=== PATIENT | female | born 1985 | race Caucasian/White ===

== ENCOUNTER 2016-06-22 18:12 | Emergency (ER) | payer OTHER ==
--- NOTE | 2016-06-22 18:43 | ED GI/GU/ABDOMINAL COMPLAINT ---
History of Present Illness General Chief Complaint: Abdominal Pain/Flank Pain Stated Complaint: ABD PAIN, +N/V Source: patient Exam Limitations: no limitations Vital Signs & Intake/Output Vital Signs & Intake/Output Vital Signs Date Time Temp Pulse Resp B/P Pulse O2 O2 Flow FiO2 Ox Delivery Rate 06/22 2012 74 14 104/62 99 Room Air 06/22 1906 Room Air 06/22 1859 80 14 105/58 99 Room Air 06/22 1814 98.1 81 18 123/76 100 Room Air Allergies Coded Allergies: NO KNOWN ALLERGIES (06/22/16) Reconcile Medications Ondansetron (Zofran Odt) 4 MG TAB.RAPDIS 1 TAB SL Q6P PRN NAUSEA/VOMITING Vit No.130/Iron/FA ( Tablet) 27 MG IRON-800 MCG TABLET 1 TAB PO DAILY (Reported) Ranitidine HCl (Zantac) 300 MG TABLET 1 TAB PO DAILY stomache acid Triage Note: PT TO TRIAGE FOR UPPER AND BURNING AT 3PM, INCREASING TO SHARP. PT ATE AND DRANK SOME FOODAND THEN THREW UP. PAIN IS NOW CONSTANT. PT STATES SHE ALSO IS NAUSEOUS. 12 WEEKS Dec, . Triage Nurses Notes Reviewed? yes HPI: 30-year-old female here with complaints of epigastric abdominal pain which is a moderate burning sensation nonradiating and one episode of vomiting several times. She states she went out to dinner last night had a Caesar salad, had diarrhea later in the evening and then while she was driving to work around 2 PM she felt pain in her epigastric region and burning sensation. This continued throughout the afternoon. 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 Her last vomiting she had trace of blood in it. She is currently 12 weeks , unconjugated thus far, had ultrasounds and documented IUP, she follows with [facility]. She is moderately nauseous but does not want anything for nausea or pain. She denies any fever or flulike illness. She has no pain radiating into the back. She has no lower abdominal pain. She has not worsening urinary frequency urgency or burning (KRISTY MELÉNDEZ,CARISSA) ? y Is pt currently ? No (NICOLA FRIEDMAN,JOSELO Clinton) Past History Travel History Traveled to [place] past 21 day No Medical History Any Pertinent Medical History? 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 No (NICOLA FRIEDMAN,JOSELO Clinton) Review of Systems Review of Systems Constitutional: Reports: see HPI. EENTM: Reports: no symptoms. Respiratory: Reports: no symptoms. Cardiovascular: Reports: no symptoms. GI: Reports: see HPI. Genitourinary: Reports: no symptoms. Musculoskeletal: Reports: no symptoms. Skin: Reports: no symptoms. Neurological/Psychological: Reports: no symptoms. Hematologic/Endocrine: Reports: no symptoms. Immunologic/Allergic: Reports: no symptoms. All Other Systems: Reviewed and Negative (CARISSA VALDEZ) Physical Exam Physical Exam Respiratory: normal breath sounds, chest non-tender, no respiratory distress Cardiovascular: regular rate/rhythm Gastrointestinal: normal bowel sounds, soft, TENDERNESS IN THE EPIGASTRIC REGION AND TO THE RIGHT UPPER QUADRANT MAXIMALLY. nO LOWER ABDOMINAL TENDERNESS. nO cva TENDERNESS. Comments: Well-developed well-nourished no apparent distress. HEENT: Atraumatic, extraocular motion intact Neck: Supple, no lymphadenopathy Back: Nontender Respiratory: No respiratory distress Extremities: No edema, full range of motion Neuro: Alert and oriented x3 Psych: Mood affect normal, normal memory normal judgment. Skin: Warm and dry, no rash on exposed skin (CARISSA VALDEZ) Core Measures ACS in differential dx? No Severe Sepsis Present: No Septic Shock Present: No (JOSELO SALAZAR MD) Progress Diagnostic Imaging: Viewed by Me: Ultrasound. Discussed w/RAD: Ultrasound. Radiology Impression: PATIENT: PERRI COLLINS PRESENT AGE: 30 PATIENT ACCOUNT NO: [id number] : 83 LOCATION: [facility] ORDERING PHYSICIAN: CARISSA MELÉNDEZ SERVICE DATE: 06/22/16 EXAM TYPE : US - US-LIMITED ABDOMEN EXAMINATION: US ABDOMEN LIMITED CLINICAL INFORMATION: Epigastric and right upper quadrant pain.. COMPARISON: None TECHNIQUE: Real-time imaging of the right upper quadrant abdominal viscera. FINDINGS: PANCREAS: The head and body are normal. Tail obscured by overlying bowel gas field LIVER: Normal. The liver demonstrates normal size, contour and echogenicity. No focal lesion or intrahepatic biliary duct dilatation. GALLBLADDER: Normal. The gallbladder is physiologically distended without evidence of stones, sludge, polyps, wall thickening or pericholecystic fluid. COMMON BILE DUCT: Normal in caliber measuring 0.2 cm in diameter. RIGHT KIDNEY: Normal. No hydronephrosis. No renal calculi or focal parenchymal lesions. The kidney measures 11.2 cm in maximum dimension. FREE FLUID: None. IMPRESSION: Normal exam. DICTATED BY: ILEANA RODRIGUEZ MD DATE/TIME DICTATED:06/22/162004 WAX MOLDER: RADHA DATE/TIME TRANSCRIBED: Initial ED EKG: none Comments: Patient reevaluated, she is feeling better, still with mild burning epigastric sensation, ice chips or helping. Her eye with her back is unremarkable. We're waiting for her ultrasound report. She is signed out to Dr. Salazar who has evaluated the patient as well. (KRISTY MELÉNDEZ,CARISSA) Differential Diagnosis: see notes Plan of Care: Orders Procedure Date/time Status US-LIMITED ABDOMEN 06/22 1833 Active LIPASE 06/22 183 Complete COMPREHENSIVE METABOLIC PANEL 06/22 183 Complete CBC WITHOUT DIFFERENTIAL 06/22 183 Complete AMYLASE 06/22 183 Complete Laboratory Tests 06/22/16 1843: Anion Gap 10, Estimated GFR > 60, BUN/Creatinine Ratio 14.0, Glucose 84, Calcium 8.8, Total Bilirubin 0.4, AST 19, ALT 25, Alkaline Phosphatase 45, Total Protein 6.7, Albumin 3.8, Globulin 2.9, Albumin/Globulin Ratio 1.3, Amylase 52, Lipase 106, CBC w Diff NO MAN DIFF REQ, RBC 4.11 L, MCV 93.1, MCH 31.3 H, RDW 12.9, MPV 9.3, Gran % 70.0, Lymphocytes % 23.7, Monocytes % 5.2, Eosinophils % 0.7, Basophils % 0.4, Absolute Granulocytes 6.0, Absolute Lymphocytes 2.0, Absolute Monocytes 0.4, Absolute Eosinophils 0.1, Absolute Basophils 0, PUBS MCHC 33.6 Comments: 06/22/2016 8:12:25 PM patient signed out to me by RIKA Sapp. u/s pending. clinical imp:gastritis,ge,gerd. 06/22/2016 9:47:03 PM I have updated Perri on her test results. She states that all the burning epigastric discomfort is still present it is better and she has declined additional medications here in the emergency department. She agrees to treatment with Zantac for possibility of dyspepsia or similar issues. She will also except a written prescription for an antiemetic. I told her that it would be reassuring if she were to show tolerance of clear liquids here in the emergency department but she declined this. She does feel well enough to return home. (NICOLA FRIEDMAN,JOSELO Clinton) Departure Departure Disposition: HOME OR SELF CARE Condition: Stable Clinical Impression Primary Impression: Gastritis Qualifiers: Gastritis type: other gastritis Chronicity: acute Gastritis bleeding: without bleeding Qualified Code: K29.00 - Acute gastritis without bleeding Secondary Impressions: Nausea & vomiting Qualifiers: Vomiting type: unspecified Vomiting Intractability: unspecified Qualified Code: R11.2 - Nausea with vomiting, unspecified Departure Forms: Customer Survey General Discharge Information (CARISSA VALDEZ) Departure Additional Instructions: Please follow up with your primary care doctor or [facility] for further evaluation and treatment of your epigastric pain/abdominal pain and vomiting on Saturday. [place] diet, avoid spicy or acidic foods. Return to the ER with worsening abdominal pain, nausea, vomiting, fever. Please note that there might be incidental findings in your evaluation that are unrelated to the current emergency department visit. Please notify your primary care doctor about this emergency department visit in order to obtain and review all of the testing performed so that these incidental findings can be monitored as needed. If you had an x-ray performed, please understand that some fractures may not be seen on the initial set of x-rays. If your symptoms persist you might need a repeat set of x-rays to check for such a fracture. If you had a laceration evaluated, please understand that foreign bodies such as glass or wood may not be visible to the naked eye or on plain x-rays. If the wound becomes red, swollen, increasingly more painful or if there is any drainage from the wound, please have it reevaluated by a physician for the possibility of a retained foreign body. Thank you for choosing the [facility] Emergency Department for your care. It was a pleasure to serve you today. Joselo Salazar M.D. [facility] Prescriptions: Current Visit Scripts Ranitidine HCl (Zantac) 1 TAB PO DAILY #15 TAB Ondansetron (Zofran Odt) 1 TAB SL Q6P PRN NAUSEA/VOMITING #10 TAB PA/RUBBER THREAD SPOOLER Co-Sign Statement Statement: ED Attending supervision documentation- [x] I saw and evaluated the patient. I have also reviewed all the pertinent lab results and diagnostic results. I agree with the findings and the plan of care as documented in the PA's/RUBBER THREAD SPOOLER's documentation. [] I have reviewed the ED Record and agree with the PA's/RUBBER THREAD SPOOLER's documentation. [] Additions or exceptions (if any) to the PAs/RUBBER THREAD SPOOLER's note and plan are summarized below: [] (NICOLA FRIEDMAN,JOSELO Clinton)
[2016-06-22 19:01] LABS: ABSOLUTE BASOPHIL COUNT 0 /CUMM (0.0-0.2); ABSOLUTE EOSINOPHIL COUNT 0.1 /CUMM (0.0-0.7); ABSOLUTE MONOCYTE COUNT 0.4 /CUMM (0.10-0.60); BASOPHIL % 0.4 % (0.0-2.0); EOSINOPHIL % 0.7 % (0-5); HEMATOCRIT 38.2 % (37-47); MEAN CORPUSCULAR HGB 31.3 PG (27.0-31.0); MEAN CORPUSCULAR HGB CONC 33.6 G/DL (33.0-37.0); MEAN CORPUSCULAR VOLUME 93.1 FL (81.0-99.0); MEAN PLATELET VOLUME 9.3 FL (7.4-10.4); PLATELET COUNT 256 /CUMM (130-400); RBC DISTRIBUTION WIDTH 12.9 % (11.5-14.5); RED BLOOD CELL CT 4.11 /CUMM (4.20-5.40); WHITE BLOOD CELL COUNT 8.6 /CUMM (4.8-10.8)
[2016-06-22] MEDS ORDERED: PRENATAL TABLE1 EAC2 PO (19:51)
[2016-06-22 20:13] VITALS: BP 104/62
[2016-06-22] MEDS ORDERED: ZANTAC300 MG PO (21:51)
[2016-06-22] MEDS ORDERED: ZOFRAN ODT4 M1 SL (21:51)
--- NOTE | 2016-06-25 09:20 | ULTRASOUND REPORT ---
EXAMINATION: US ABDOMEN LIMITED CLINICAL INFORMATION: Epigastric and right upper quadrant pain.. COMPARISON: None TECHNIQUE: Real-time imaging of the right upper quadrant abdominal viscera. FINDINGS: PANCREAS: The head and body are normal. Tail obscured by overlying bowel gas field LIVER: Normal. The liver demonstrates normal size, contour and echogenicity. No focal lesion or intrahepatic biliary duct dilatation. GALLBLADDER: Normal. The gallbladder is physiologically distended without evidence of stones, sludge, polyps, wall thickening or pericholecystic fluid. COMMON BILE DUCT: Normal in caliber measuring 0.2 cm in diameter. RIGHT KIDNEY: Normal. No hydronephrosis. No renal calculi or focal parenchymal lesions. The kidney measures 11.2 cm in maximum dimension. FREE FLUID: None. IMPRESSION: Normal exam.
== END 2016-06-22 22:00 ==
LOC: ERH
PROVIDERS: Physician Assistant Surgical
DX: O99.611 Diseases of the digestive system complicating pregnancy, first trimester (principal); K29.70 Gastritis, unspecified, without bleeding; Z3A.12 12 weeks gestation of pregnancy